=== PATIENT | male | born 1990 | race Caucasian/White ===

== ENCOUNTER 2024-11-29 03:42 | Emergency (ER) | payer OTHER, SELFPAY ==
--- NOTE | 2024-11-29 04:10 | EDPHYS ---
Physician Documentation [facility] Name: Sánchez Alarcon Age: 34 yrs Sex: Male : 1990 Arrival Date: 11/29/2024 Time: 03:42 Bed 5 Private MD: ED Physician Waldo Cho HPI: 11/29 04:14 This 34 yrs old Male presents to ER via Ambulatory with complaints of Foreign rt Body In Ear. 04:14 The patient or guardian reports the patient has a suspected foreign body, of the ear, rt on the left. The reported likely foreign body is an insect. Onset: The symptoms/episode began/occurred just prior to arrival. Current symptoms: foreign body sensation. Treatment Prior to Arrival: tried to flush. The patient has not experienced similar symptoms in the past. Historical: - Allergies: 03:51 No Known Allergies; bm8 - Home Meds: 03:51 None [Active]; bm8 - PMHx: 03:51 None; bm8 - PSHx: 03:51 left eye repair; bm8 - Immunization history:: Adult Immunizations up to date. - Infectious Disease History:: Denies. - Social history:: Smoking status: Patient denies any tobacco usage or history of. - Family history:: not pertinent. ROS: 04:14 Constitutional: Negative for fever, chills, and weight loss, Skin: Negative for injury, rt rash, and discoloration, Neuro: Negative for headache, weakness, numbness, tingling, and seizure, 04:14 ENT: Positive for foreign body sensation, Exam: 04:14 Constitutional: This is a well developed, well nourished patient who is awake, alert, rt and in no acute distress. Head/Face: Normocephalic, atraumatic. 04:14 ENT: Insect in the left EAC, abutting the tympanic membrane. Vital Signs: 03:50 BP 145 / 108; Pulse 86; Resp 17; Temp 98; Pulse Ox 99% ; Weight 104.33 kg; Height 6 ft. bm8 0 in. ; Pain 2/10; 03:50 Body Mass Index 31.19 (104.33 kg, 182.88 cm) bm8 03:50 Pain Scale: Adult bm8 Drury Coma Score: 03:53 Eye Response: spontaneous(4). Motor Response: obeys commands(6). Verbal Response: bm8 oriented(5). Total: 15. Procedures: 04:14 Foreign Body Removal: an insect, from the left ear canal, by using alligator clamps, rt using a curette, normal saline irrigation, Unable to remove insect safely due to it being immobile from the tympanic membrane, procedure was terminated due to patient safety, will send to ENT for removal.. MDM: 03:45 Medical Screening Exam initiated rt 04:14 Data reviewed: vital signs, nurses notes. Counseling: I had a detailed discussion with rt the patient and/or guardian regarding the historical points, exam findings, and any diagnostic results supporting the discharge/admit diagnosis, the need for outpatient follow up. Response to treatment: There is no appreciated change of the patient's symptoms at this time. Administered Medications: No medications were administered Disposition Summary: 11/29/24 04:10 Discharge Ordered Notes: Location: Home rt Problem: new rt Symptoms: are unchanged rt Condition: Stable rt Diagnosis - Foreign body to left external auditory canal rt Followup: rt - With: Tena Arellano MD - When: Today - Reason: Discharge Instructions: - Discharge Summary Sheet rt - Ear Foreign Body rt Forms: - Medication Reconciliation Form rt - Antibiotic Education rt - Prescription Opioid Use rt - Patient Portal Instructions rt - Leadership Thank You Letter rt - Work release form bm8 Signatures: Waldo Cho MD MD rt Clark Luo, RN RN bm8
--- NOTE | 2024-11-29 04:10 | ER ---
Nurse's Notes [facility] Name: Sánchez Alarcon Age: 34 yrs Sex: Male : 1990 Arrival Date: 11/29/2024 Time: 03:42 Bed 5 Private MD: Diagnosis: Foreign body to left external auditory canal Presentation: 11/29 03:50 Chief complaint: Patient states: I think a coughlin crawled in my ear. I drowned it with bm8 H2O2 and olive oil. Coronavirus screen: At this time, the client does not indicate any symptoms associated with coronavirus-19. Ebola Screen: Patient negative for fever greater than or equal to 101.5 degrees Fahrenheit, and additional compatible Ebola Virus Disease symptoms Patient denies exposure to infectious person. Patient denies travel to an Ebola-affected area in the 21 days before illness onset. No symptoms or risks identified at this time. Initial Sepsis Screen: Does the patient meet any 2 criteria? No. Patient's initial sepsis screen is negative. Does the patient have a suspected source of infection? No. Patient's initial sepsis screen is negative. Risk Assessment: Do you want to hurt yourself or someone else? Patient reports no desire to harm self or others. Onset of symptoms was November 29, 2024 at 02:30. 03:50 Method Of Arrival: Ambulatory bm8 03:50 Acuity: COURTNEY 4 bm8 Triage Assessment: 03:51 General: Appears in no apparent distress. comfortable, Behavior is calm, cooperative, bm8 appropriate for age. Pain: Complains of pain in left ear Pain currently is 2 out of 10 on a pain scale. EENT: Ear canal w/ foreign body noted from left ear Reports pain in left ear Pain is 2 out of 10 on a pain scale. Neuro: No deficits noted. Level of Consciousness is awake, alert, obeys commands, Oriented to person, place, time, situation, Appropriate for age. Cardiovascular: Denies chest pain, Capillary refill < 3 seconds in bilateral fingers toes Patient's skin is warm and dry. Respiratory: Airway is patent Respiratory effort is even, unlabored, Respiratory pattern is regular, symmetrical. GI: No signs and/or symptoms were reported involving the gastrointestinal system. : No signs and/or symptoms were reported regarding the genitourinary system. Derm: No signs and/or symptoms reported regarding the dermatologic system. Musculoskeletal: No signs and/or symptoms reported regarding the musculoskeletal system. Historical: - Allergies: 03:51 No Known Allergies; bm8 - Home Meds: 03:51 None [Active]; bm8 - PMHx: 03:51 None; bm8 - PSHx: 03:51 left eye repair; bm8 - Immunization history:: Adult Immunizations up to date. - Infectious Disease History:: Denies. - Social history:: Smoking status: Patient denies any tobacco usage or history of. - Family history:: not pertinent. Screenin:53 [facility] ED Fall Risk Assessment (Adult) History of falling in the last 3 months, bm8 including since admission No falls in past 3 months (0 pts) Confusion or Disorientation No (0 pts) Intoxicated or Sedated No (0 pts) Impaired Gait No (0 pts) Mobility Assist Device Used No (0 pt) Altered Elimination No (0 pt) Score/Fall Risk Level 0 - 2 = Low Risk Oriented to surroundings, Maintained a safe environment, Educated pt \T\ family on fall prevention, incl call for assistance when getting out of bed, Assessed \T\ reinforced patient's understanding of fall precautions, Hourly rounding (assess needs \T\ fall precautionary measures) done, Used ambulatory aids as needed (educated on \T\ assisted with), Used gait belt as appropriate. Abuse screen: Denies threats or abuse. Nutritional screening: No deficits noted. Tuberculosis screening: No symptoms or risk factors identified. Assessment: 04:16 Reassessment: No changes from previously documented assessment. Patient and/or family bm8 updated on plan of care and expected duration. Pain level reassessed. Patient is alert, oriented x 3, equal unlabored respirations, skin warm/dry/pink. see triage note. Vital Signs: 03:50 BP 145 / 108; Pulse 86; Resp 17; Temp 98; Pulse Ox 99% ; Weight 104.33 kg; Height 6 ft. bm8 0 in. ; Pain 2/10; 03:50 Body Mass Index 31.19 (104.33 kg, 182.88 cm) bm8 03:50 Pain Scale: Adult bm8 W[place]on Coma Score: 03:53 Eye Response: spontaneous(4). Motor Response: obeys commands(6). Verbal Response: bm8 oriented(5). Total: 15. ED Course: 03:42 Patient arrived in ED. [email or web address] 03:43 Waldo Cho MD is Attending Physician. rt 03:50 Clark Luo, RN is Primary Nurse. bm8 03:51 Triage completed. bm8 03:51 Arm band placed on right wrist. bm8 03:53 Patient has correct armband on for positive identification. Placed in gown. Bed in low bm8 position. Call light in reach. Side rails up X 1. Adult w/ patient. Client placed on continuous cardiac and pulse oximetry monitoring. NIBP monitoring applied. Pulse ox on. NIBP on. Door closed. Noise minimized. Pillow given. Verbal reassurance given. Head of bed lowered. 03:53 Assist provider with foreign body removal of an insect from left ear canal. using bm8 hemostats, Set up for procedure. Performed by Waldo Cho MD Patient tolerated well. procedure was ultimately unsuccessful. Patient did not have IV access during this emergency room visit. Patient maintains SpO2 saturation greater than 95% on room air. 04:08 Tena Arellano MD is Referral Physician. rt 04:16 Provided Education on: post er care, followup with ENT. bm8 Administered Medications: No medications were administered Medication: 03:53 VIS not applicable for this client. bm8 Outcome: 04:10 Discharge ordered by . rt 04:15 Discharged to home ambulatory, with family, bm8 04:15 Condition: stable 04:15 Discharge instructions given to patient, family, Instructed on discharge instructions, follow up and referral plans. safety practices, Demonstrated understanding of instructions, follow-up care, 04:16 Patient left the ED. bm8 Signatures: Krish Ella [email or web address] Waldo Cho MD MD rt Clark Luo, RN RN bm8 Corrections: (The following items were deleted from the chart) 04:15 03:53 Assist provider with foreign body removal of an insect from left ear canal. using bm8 hemostats, Set up for procedure. Performed by Waldo Cho MD Patient tolerated well. bm8
[2024-11-29 04:22] VITALS: BP 145/108; TEMP 98; O2SAT 99
== END 2024-11-29 04:16 | disposition home or self-care (01) ==
LOC: ER 03:42
DX: T16.2XXA Foreign body in left ear, initial encounter (principal)
CPT/HCPCS: 99283